=== PATIENT | female | born 1945 | race Caucasian/White ===

== ENCOUNTER 2017-08-24 13:56 | Inpatient (IN) | payer MEDICARE ==
[2017-08-24] MEDS ORDERED: SODIUM CHLORIDE 0.9% 500 ML IV STA (15:00)
--- NOTE | 2017-08-24 15:03 | ED ---
General Adult HPI - General Chief complaint: Recheck/Abnormal Lab/Rx Stated complaint: Weakness Time Seen by Provider: 08/24/17 14:20 Source: patient, RN notes reviewed Mode of arrival: wheelchair Limitations: no limitations - History of Present Illness Initial comments: This is a 72-year-old female presents emergency Department complaining that she is feeling extremely weak when she stands up she is becoming very dizzy. Patient states she was told quite a while ago that she was anemic and she was post to follow-up for iron infusions colonoscopies but she has not done that because she is fearful. Patient states she is at the point now that food makes her nauseated she can barely stand and she hasn't got out of the house and weeks. Patient decided that it is time did take some action so she came to the emergency department. Patient denies any chest pain patient denies any recent fever chills or cough. Patient denies headache patient denies numbness weakness. Patient denies nausea vomiting diarrhea. - Related Data Home Medications Medication Instructions Recorded Confirmed Allopurinol [Zyloprim] 100 mg PO BID 01/29/17 08/24/17 Aspirin 325 mg PO DAILY 01/29/17 08/24/17 Clopidogrel [Plavix] 75 mg PO DAILY 01/29/17 08/24/17 Lisinopril-Hctz 20-12.5 mg 1 tab PO BID 01/29/17 08/24/17 [Zestoretic 20-12.5] Metoprolol Tartrate 25 mg PO BID 01/29/17 08/24/17 Simvastatin 40 mg PO DAILY 01/29/17 08/24/17 glyBURIDE [Diabeta] 5 mg PO AC-BID 01/29/17 08/24/17 Promethazine HCl 12.5 mg PO DAILY PRN 08/24/17 08/24/17 Ranolazine [Ranexa] 1,000 mg PO BID 08/24/17 08/24/17 Allergies Allergy/AdvReac Type Severity Reaction Status Date / Time No Known Allergies Allergy Verified 08/24/17 14:45 Review of Systems ROS Statement: Those systems with pertinent positive or pertinent negative responses have been documented in the HPI. ROS Other: All systems not noted in ROS Statement are negative. Past Medical History Past Medical History: Coronary Artery Disease (CAD), Diabetes Mellitus, Hyperlipidemia, Hypertension, Renal Disease Additional Past Medical History / Comment(s): Vertigo,anemia,angina History of Any Multi-Drug Resistant Organisms: None Reported Past Surgical History: Appendectomy, Cholecystectomy, Heart Catheterization With Stent Past Anesthesia/Blood Transfusion Reactions: Motion Sickness Date of Last Stent Placement:: 2006 Past Psychological History: No Psychological Hx Reported Smoking Status: Never smoker Past Alcohol Use History: None Reported Past Drug Use History: None Reported General Exam - General Exam Comments Initial Comments: GENERAL: Patient is well-developed and well-nourished. Patient is nontoxic and well- hydrated and is in no acute distress. ENT: Neck is soft and supple. No significant lymphadenopathy is noted. Oropharynx is clear. Moist mucous membranes. Neck has full range of motion without eliciting any pain. EYES: The sclera were anicteric and conjunctiva were pink and moist. Extraocular movements were intact and pupils were equal round and reactive to light. Eyelids were unremarkable. PULMONARY: Unlabored respirations. Good breath sounds bilaterally. No audible rales rhonchi or wheezing was noted. CARDIOVASCULAR: There is a regular rate and rhythm without any murmurs gallops or rubs. ABDOMEN: Soft and nontender with normal bowel sounds. No palpable organomegaly was noted. There is no palpable pulsatile mass. SKIN: Skin is very pale. NEUROLOGIC: Patient is alert and oriented x3. Cranial nerves II through XII are grossly intact. Motor and sensory are also intact. Normal speech, volume and content. Symmetrical smile. MUSCULOSKELETAL: Normal extremities with adequate strength and full range of motion. LYMPHATICS: No significant lymphadenopathy is noted PSYCHIATRIC: Normal psychiatric evaluation. Normal interpersonal interactions appears functionally intact in deals appropriately with others. No signs of depression. No signs of anxiety. Limitations: no limitations Course Vital Signs 08/24/17 08/24/17 08/24/17 14:21 15:41 16:36 Temperature 97.6 F Pulse Rate 99 53 L 55 L Respiratory 20 16 16 Rate Blood Pressure 107/55 135/65 157/72 O2 Sat by Pulse 97 100 99 Oximetry Medical Decision Making - Medical Decision Making EKG shows sinus bradycardia 51 bpm OR interval is 188 QRS is 94 QT interval is 516 QTC is 475. Patient's EKG shows no ST segment elevation or depression or T wave abnormalities are noted. - Lab Data Result diagrams: 08/24/17 15:07 Lab Results 08/24/17 08/24/1718 Range/Units 15:07 15:07 15:07 WBC 6.9 (3.8-10.6) k/uL RBC 3.48 L (3.80-5.40) m/uL Hgb 7.7 L (11.4-16.0) gm/dL Hct 26.0 L (34.0-46.0) % MCV 74.8 L (80.0-100.0) fL MCH 22.0 L (25.0-35.0) pg MCHC 29.4 L (31.0-37.0) g/dL RDW 17.6 H (11.5-15.5) % Plt Count 210 (150-450) k/uL Neutrophils % 90 % Lymphocytes % 5 % Monocytes % 3 % Eosinophils % 1 % Basophils % 1 % Neutrophils # 6.2 (1.3-7.7) k/uL Lymphocytes # 0.3 L (1.0-4.8) k/uL Monocytes # 0.2 (0-1.0) k/uL Eosinophils # 0.1 (0-0.7) k/uL Basophils # 0.0 (0-0.2) k/uL Hypochromasia Marked Poikilocytosis Slight Anisocytosis Slight Microcytosis Moderate PT 10.7 (9.0-12.0) sec INR 1.1 (<1.2) APTT 20.2 L (22.0-30.0) sec Total Creatine Kinase 82 (30-135) U/L CK-MB (CK-2) 0.8 (0.0-2.4) ng/mL CK-MB (CK-2) Rel Index 1.0 Troponin I <0.012 (0.000-0.034) ng/mL Disposition Clinical Impression: Generalized weakness, Anemia Disposition: ADMITTED IP TO THIS HOSP Referrals: Dimas Batista DO [Primary Care Provider] - 1-2 days Time of Disposition: 16:56
[2017-08-24 15:20] LABS: Anisocytosis Slight; Basophils % (A) 1 %; Eosinophils # (A) 0.1 k/uL (0-0.7); Eosinophils % (A) 1 %; HGB 7.7 gm/dL (11.4-16.0); Hypochromasia Marked; Lymphocytes # (A) 0.3 k/uL (1.0-4.8); Lymphocytes % (A) 5 %; MCHC 29.4 g/dL (31.0-37.0); MCV 74.8 fL (80.0-100.0); Mean Platelet Volume 6.4; Microcytosis Moderate; Monocytes # (A) 0.2 k/uL (0-1.0); Monocytes % (A) 3 %; Neutrophils # (A) 6.2 k/uL (1.3-7.7); Neutrophils % (A) 90 %; Platelet Count 210 k/uL (150-450); Poikilocytosis Slight; RBC 3.48 m/uL (3.80-5.40); RDW 17.6 % (11.5-15.5); WBC 6.9 k/uL (3.8-10.6)
[2017-08-24 15:41] LABS: Creatine Kinase 82 U/L (30-135)
[2017-08-24 15:45] LABS: INR 1.1 (<1.2); Prothrombin Time 10.7 sec (9.0-12.0)
[2017-08-24 15:52] LABS: Partial Thromboplastin Time 20.2 sec (22.0-30.0)
[2017-08-24 15:54] LABS: Creatine Kinase MB 0.8 ng/mL (0.0-2.4); Troponin I <0.012 ng/mL (0.000-0.034)
[2017-08-24] MEDS ORDERED: SODIUM CHLORIDE 0.9% 1,000 ML IV ONE (16:56)
[2017-08-24 17:04] LABS: Albumin 4.1 g/dL (3.5-5.0); Calcium 9.7 mg/dL (8.4-10.2); Total Bilirubin 0.5 mg/dL (0.2-1.3); Total Protein 7.2 g/dL (6.3-8.2)
[2017-08-24] MEDS ORDERED: ONDANSETRON 4 MG/2 ML VIAL IVP PRN (19:40)
[2017-08-24] MEDS ORDERED: NALOXONE 0.4 MG/ML 1 ML VIAL IV PRN (19:40)
[2017-08-24] MEDS ORDERED: ACETAMINOPHEN TAB 325 MG TAB PO PRN (19:40)
[2017-08-24] MEDS ORDERED: LORazepam 0.5 MG TAB PO PRN (19:40)
[2017-08-24] MEDS ORDERED: MELATONIN 3 MG TABLET PO PRN (19:40)
[2017-08-24] MEDS ORDERED: CALCIUM CARBONATE 500 MG CHEWABLE PO PRN (19:40)
[2017-08-24] MEDS ORDERED: METOPROLOL TARTRATE 25 MG TAB PO SCH (21:00)
[2017-08-24] MEDS: METOPROLOL TARTRATE 12.5 MG TAB PO SCH (21:02)
[2017-08-24] MEDS: RANOLAZINE 500 MG TAB.ER.12H PO SCH (21:02)
--- NOTE | 2017-08-25 00:14 | HP ---
HISTORY AND PHYSICAL DATE OF ADMISSION: 08/24/2017 PRESENT COMPLAINT: Weak, tired. HISTORY OF PRESENTING COMPLAINT: This is a very pleasant 72-year-old patient of Dr. Dimas Batista. Chronic stable medical conditions include coronary artery disease with a history of stent about 5 years ago, hypertension, hyperlipidemia, chronic kidney disease. The patient has been reluctant to follow up with doctors and is brought in by her son and daughter. The patient over the last few months progressively getting more and more weak and tired, weak to the point that the patient has to now use a wheelchair, gets dizzy very easily when she stands up. The patient has known chronic kidney disease and her creatinine was 1.7 last recorded at a family doctor's office. Appetite has gone down. Weight has remained stable. Some swelling of the lower extremity. Mild shortness of breath. No chest pain. The patient is also found to be significantly anemic in the ER, hemoglobin of 7.7 and because of symptoms, 1 unit of blood was ordered in the ER. REVIEW OF SYSTEMS: CONSTITUTIONAL: Decreased appetite, weak and tired. HEENT: None. RESPIRATORY: Minimal short of breath. CARDIOVASCULAR: No chest pain. GASTROINTESTINAL: None. GENITOURINARY: None. MUSCULOSKELETAL: None. DERMATOLOGICAL: None. HEMATOLOGIC: None. LYMPHATIC: None. PSYCHIATRY: None. NEUROLOGICAL: None. MUSCULOSKELETAL: Weakness in all the muscles. PAST MEDICAL HISTORY: Coronary artery disease with stent 5 years ago, diabetes mellitus type 2, hyperlipidemia, hypertension, chronic kidney disease. PAST SURGICAL HISTORY: Appendectomy, cholecystectomy, cardiac cath with stent in 2006. SOCIAL HISTORY: Lives with her . Does not smoke or drink alcohol. FAMILY HISTORY: Myocardial infarction. HOME MEDICATIONS: 1. Promethazine 12.5 p.o. t.i.d. p.r.n. 2. DiaBeta 5 mg p.o. b.i.d. 3. Simvastatin 40 mg p.o. daily. 4. Ranexa 1000 mg p.o. b.i.d. 5. Metoprolol 25 mg p.o. b.i.d. 6. Zestoretic 20/12.5 one tablet p.o. b.i.d. 7. Plavix 75 mg p.o. daily. 8. Aspirin 325 p.o. daily. 9. Allopurinol 100 mg p.o. b.i.d. ALLERGIES: None. EXAMINATION: VITAL SIGNS: On presentation, temperature 97.6, pulse 55, respirations 16, blood pressure 135/65, pulse ox 100% on room air. GENERAL APPEARANCE: Well-built, BMI 30.59. Lying in bed, tired-appearing. EYES: Pupils equal, conjunctivae pale. HEENT: External nose and ears normal. Oral cavity normal with decreased scalp hair. NECK: JVD not raised. Mass not palpable. RESPIRATORY: Effort normal. Lungs are clear. CARDIOVASCULAR: First and second sounds normal. Mild edema. ABDOMEN: Soft, nontender. Liver and spleen not palpable. LYMPHATIC: No lymph nodes palpable in neck or axillae. PSYCHIATRY: Alert and oriented x3. Mood and affect normal. NEUROLOGIC: Pupils equal. Cranial nerve grossly intact. Power and sensation grossly intact. MUSCULOSKELETAL: Just generalized weakness of the muscles. INVESTIGATION: White count 6.9, hemoglobin 7.7, MCV low at 74.8, platelets 210. Potassium 5, bicarb 21, BUN 49, creatinine 2.40. ASSESSMENT: 1. Severe myopathy, probably multifactorial, given that the patient has renal failure. Will need to check the patient's phosphate level. Also, it may be noted that the patient is on simvastatin. That could be contributing to the same. Will check patient's CPK. 2. Possibly acute renal failure on chronic kidney disease. The patient's last creatinine was 1.7 as per the patient's family doctor and patient was on angiotensin-converting enzyme inhibitor and diuretics. That could be making things worse. 3. Metabolic acidosis, likely from renal failure. 4. Symptomatic microcytic anemia. Need to rule out a gastrointestinal cause, symptomatic. 5. Obesity; BMI 30.9. 6. Coronary artery disease with history of stent 5 years ago. 7. Essential hypertension. 8. Hyperlipidemia. 9. Rule out orthostatic, as patient gets dizzy on standing up. PLAN: Will check patient's orthostatics. Will check the patient's a UA and a renal ultrasound. Will check the patient's iron studies, including iron, TIBC and ferritin. Will also check a phosphorus level. Will also assess for the patient's 2D echocardiogram and send off a CPK to check if there is underlying rhabdomyolysis. Will also check the patient's chest x-ray, get physical therapy involved. Consultation also made to GI with a view to possible colonoscopy. The patient also having some bradycardia. Will cut back on the dose of Lopressor. If need be, other antihypertensive will be added. The patient also put on IV fluids. Given the renal failure, also will cut back on the dose of allopurinol and check a uric acid in the morning. Care was discussed at length with the patient and family and take it from here. MANUELA / RON: [id number] /
[2017-08-25] MEDS: SODIUM CHLORIDE 0.9% 1,000 ML IV SCH ×3 (06:21→16:16)
[2017-08-25 07:15] LABS: Appearance,Urine Clear (Clear); Bilirubin,Urine Negative (Negative); Blood,Urine Negative (Negative); Color,Urine Yellow; Glucose,Urine (UA) Negative (Negative); Hyaline Casts,Urine 5 /lpf (0-2); Ketones,Urine Negative (Negative); Leukocyte Esterase,Urine Large (Negative); Nitrite,Urine Negative (Negative); Protein,Urine Negative (Negative); RBC,Urine 3 /hpf (0-5); Specific Gravity,Urine 1.013 (1.001-1.035); Squamous Epithelial Cell,Urine 2 /hpf (0-4); Urobilinogen,Urine <2.0 mg/dL (<2.0); WBC,Urine 29 /hpf (0-5)
[2017-08-25 07:17] LABS: Glucose,Whole Blood 173 mg/dL (75-99)
[2017-08-25] MEDS: INSULIN ASPART 100 UNIT/ML 1 ML 10 ML VIAL SQ SCH ×3 (07:24→18:10)
[2017-08-25] MEDS: METOPROLOL TARTRATE 12.5 MG TAB PO SCH ×2 (07:25→21:58)
[2017-08-25] MEDS: RANOLAZINE 500 MG TAB.ER.12H PO SCH ×2 (07:30→21:57)
[2017-08-25 08:19] LABS: Anisocytosis Slight; Basophils % (A) 0 %; Eosinophils # (A) 0.2 k/uL (0-0.7); Eosinophils % (A) 4 %; HCT 23.4 % (34.0-46.0); Hypochromasia Marked; Lymphocytes # (A) 0.4 k/uL (1.0-4.8); Lymphocytes % (A) 9 %; MCHC 29.1 g/dL (31.0-37.0); MCV 75.5 fL (80.0-100.0); Microcytosis Moderate; Monocytes # (A) 0.4 k/uL (0-1.0); Monocytes % (A) 8 %; Neutrophils # (A) 3.6 k/uL (1.3-7.7); Neutrophils % (A) 76 %; Platelet Count 159 k/uL (150-450); Poikilocytosis Moderate; RDW 18.4 % (11.5-15.5); WBC 4.7 k/uL (3.8-10.6)
[2017-08-25 08:20] LABS: Phosphorus 4.5 mg/dL (2.5-4.5)
[2017-08-25 08:26] LABS: HGB 6.8 gm/dL (11.4-16.0)
--- NOTE | 2017-08-25 08:34 | US ---
EXAMINATION TYPE: US abd limited kidneys/bladder DATE OF EXAM: 08/25/2017 COMPARISON: NONE CLINICAL HISTORY: renal failure. Renal failure, anemia EXAM MEASUREMENTS: Liver Length: 13.5 cm CBD: 0.6 cm Right Kidney: 9.5 x 4.0 x 3.8 cm Left Kidney: 9.2 x 4.1 x 4.0 cm Difficult exam due to overlying bowel gas throughout ABD Pancreas: Obscured by bowel gas Liver: Limited visualization/ Visualized portions appeared wnl Gallbladder: Surgically absent CBD: wnl Right Kidney: Cortical thinning, no evidence of hydro Left Kidney: Cortical thinning, no evidence of hydro Bladder: wnl Bilateral Jets Seen Only right jet visualize The pancreas is poorly visualized. The liver is normal in size without evidence of biliary dilatation. There is been a previous cholecystectomy. This common hepatic duct measures 6 mm. There is mild cortical thinning involving both kidneys with no evidence of nephrolithiasis or doses. The bladder is unremarkable. The right ureteral jet was visualized. The left was not. IMPRESSION: 1. MILD, BILATERAL RENAL CORTICAL THINNING, MAY REFLECT MILD ATROPHY. 2. FAILURE TO VISUALIZE A LEFT URETERAL JET.
--- NOTE | 2017-08-25 08:35 | XR ---
EXAMINATION TYPE: XR chest 2V DATE OF EXAM: 08/25/2017 HISTORY: cad. REFERENCE: NONE. FINDINGS: The lungs are clear. Pleural space are clear. The heart is not enlarged. IMPRESSION: NO ACTIVE INTRATHORACIC DISEASE.
[2017-08-25 09:54] LABS: Calcium 8.9 mg/dL (8.4-10.2); Potassium 4.3 mmol/L (3.5-5.1)
[2017-08-25] MEDS: ALLOPURINOL 100 MG TAB PO SCH (11:20)
[2017-08-25] MEDS: CLOPIDOGREL 75 MG TAB PO SCH (11:20)
[2017-08-25 11:49] LABS: Glucose,Whole Blood 166 mg/dL (75-99)
--- NOTE | 2017-08-25 12:12 | CONS ---
CONSULTATION DATE OF SERVICE: August 25, 2017. REQUESTING PHYSICIAN: Dr. Jeannette Batista. REASON FOR CONSULTATION: Severe symptomatic anemia. HISTORY OF PRESENT ILLNESS: The patient is a 72-year-old pleasant white female admitted to the hospital with fatigue, weakness, not feeling well and hemoglobin of 6.4 g/dL. The patient apparently for the last 2 weeks has been progressively getting weak, weak and dizzy and could not stand up at home. She denies any abdominal symptoms. No nausea, vomiting. No rectal bleeding or melena. No abdominal pain. She came to the ER yesterday. Initial hemoglobin was 7.4, subsequently dropped to 6.4, currently receiving 2nd unit of blood transfusion. She did have blood transfusion about 8 years ago. No history of peptic ulcer disease or recent NSAID use. No prior history of EGD or colonoscopy. PAST MEDICAL HISTORY: Significant for hypertension, hyperlipidemia, coronary artery disease status post stent placement 8 years ago, diabetes mellitus, chronic kidney disease. MEDICATIONS: At home promethazine, DiaBeta, simvastatin. Ranexa, metoprolol, Zestoretic, Plavix, aspirin, Allopurinol, Plavix, she took 3 days ago. SOCIAL HISTORY: No smoking. No alcohol use. PAST SURGICAL HISTORY: Appendectomy, cholecystectomy, cardiac cath with stent in 2003. ALLERGIES: Allergies none. FAMILY HISTORY: Unremarkable. REVIEW OF SYSTEMS: Cardiopulmonary no chest pain, shortness of breath. Genitourinary: No dysuria or hematuria. Musculoskeletal unremarkable. Skin unremarkable. Endocrine unremarkable. Psychiatric unremarkable. Neurology unremarkable. ENT vision unremarkable. Constitutional no recent weight loss. No fever, chills or night sweats. PHYSICAL EXAMINATION: She appears comfortable. No apparent distress. Vital signs stable. Blood pressure is 111/55. Pulse rate 56, temperature 98.4. HEENT examination unremarkable. Conjunctivae pink. Sclerae anicteric. Oral cavity no lesions. Neck: No jugular venous distention or lymph node enlargement. Chest was clear to auscultation. HEART: Regular rate and rhythm. ABDOMEN: Soft, it was nontender, nondistended. Liver and spleen not palpable. Bowel sounds are positive. No organomegaly. Extremities no pedal edema. Skin no rashes. NEUROLOGIC: Alert and oriented x3. No focal deficits. LAB: WBC 4.7, hemoglobin 6.8, platelets 159, MCV 75. INR 1.1. BUN 43, creatinine 2.08. Iron studies are still pending. IMPRESSION: 1. Severe symptomatic anemia with microcytosis and hypochromic anemia all suggestive of iron deficiency anemia. Clinically no evidence of active bleeding most likely we are dealing with occult gastrointestinal blood loss. Never had EGD or colonoscopy in the past. The patient has no gastrointestinal symptoms currently. 2. Chronic kidney disease. 3. Longstanding history of diabetes mellitus and hypertension. RECOMMENDATIONS: I had a lengthy discussion with the patient regarding workup for microcytic hypochromic anemia. At this time, I would recommend an EGD and colonoscopy. I discussed with her risks, benefits, and complications of the procedure and she elects to proceed with endoscopic interventions tomorrow. In the meantime, she will be started on a clear liquid diet and we will follow her closely during hospital stay. Thank you for this consultation. MANUELA / RON: [id number] /
--- NOTE | 2017-08-25 12:25 | P.NPCON ---
History of Present Illness - Reason for Consult acute renal failure - History of Present Illness Reason for consultation: Acute kidney injury History of present illness: Patient is a 72-year-old female seen in renal consultation for acute kidney injury. It is noted in the chart that she does have chronic kidney disease with prior creatinine 1.7 at her primary care physician's office. Her urinalysis is quite benign. She does have history of diabetes mellitus. Patient presented to the hospital with generalized weakness and dizziness. She has history of anemia but did not follow-up with physicians as an outpatient as she was scared. Her ultrasound reveals relatively normal sized kidneys with cortical thinning. She did have an episode of vomiting and dry heaving yesterday. Hemoglobin was noted to be low as 6.8 this morning for which she is receiving blood transfusion. Her creatinine was 2.4 on admission and is down to 2.0 today. She denies any family history of renal disease. She denies use of NSAIDs. Denies chest pain or shortness of breath. She was also noted to be orthostatic with standing blood pressure of 88/50. Furthermore she was also taking lisinopril and hydrochlorothiazide as an outpatient which is currently held. Vital signs are stable. General: The patient appeared well nourished and normally developed. HEENT: Head exam is unremarkable. Neck is without jugular venous distension. LUNGS: Lungs are clear to auscultation and percussion. Breath sounds decreased. HEART: Rate and Rhythm are regular. First and second heart sounds normal. No murmurs, rubs or gallops. ABDOMEN: Abdominal exam reveals normal bowel sounds. Non-tender and non- distended. No evidence of peritonitis. EXTREMITITES: No clubbing, cyanosis, or edema. Past Medical History Past Medical History: Coronary Artery Disease (CAD), Diabetes Mellitus, Hyperlipidemia, Hypertension, Renal Disease Additional Past Medical History / Comment(s): Vertigo,nausea anemia,angina History of Any Multi-Drug Resistant Organisms: None Reported Past Surgical History: Appendectomy, Cholecystectomy, Heart Catheterization With Stent Past Anesthesia/Blood Transfusion Reactions: Motion Sickness Additional Past Anesthesia/Blood Transfusion Reaction / Comment(s): blood transfusion-no reaction Date of Last Stent Placement:: 2006 Past Psychological History: No Psychological Hx Reported Additional Psychological History / Comment(s): pt denies any depression but family concered she is. pt has shown signs in past but never put on any meds. they stated pt has'nt been out of her house since 05-21-17. cancels appts. just can't seem to get up and go. Smoking Status: Never smoker Past Alcohol Use History: None Reported Past Drug Use History: None Reported - Past Family History Father Family Medical History: Myocardial Infarction ([place]) Additional Family Medical History / Comment(s): age 60 from [place] Mother Family Medical History: CVA/TIA Additional Family Medical History / Comment(s): lived to be Medications and Allergies Home Medications Medication Instructions Recorded Confirmed Type Allopurinol [Zyloprim] 100 mg PO BID 01/29/17 08/24/17 History Aspirin 325 mg PO DAILY 01/29/17 08/24/17 History Clopidogrel [Plavix] 75 mg PO DAILY 01/29/17 08/24/17 History Lisinopril-Hctz 20-12.5 mg 1 tab PO BID 01/29/17 08/24/17 History [Zestoretic 20-12.5] Metoprolol Tartrate 25 mg PO BID 01/29/17 08/24/17 History Simvastatin 40 mg PO DAILY 01/29/17 08/24/17 History glyBURIDE [Diabeta] 5 mg PO AC-BID 01/29/17 08/24/17 History Promethazine HCl 12.5 mg PO DAILY PRN 08/24/17 08/24/17 History Ranolazine [Ranexa] 1,000 mg PO BID 08/24/17 08/24/17 History Allergies Allergy/AdvReac Type Severity Reaction Status Date / Time No Known Allergies Allergy Verified 08/24/17 14:45 Physical Exam Vitals: Vital Signs Temp Pulse Pulse Pulse Pulse Pulse Resp 08/25/17 10:32 98.3 F 56 L 20 08/25/17 10:02 98.4 F 53 L 08/25/17 09:52 98.4 F 62 18 08/25/17 09:49 98.4 F 56 L 18 08/25/17 01:47 98.2 F 70 16 08/24/17 23:25 98 F 66 16 08/24/17 23:00 98 F 72 86 68 08/24/17 22:55 98 F 68 08/24/17 22:45 98 F 67 08/24/17 21:30 96.3 F L 68 16 08/24/17 17:41 57 L 16 08/24/17 16:36 55 L 16 08/24/17 15:41 53 L 16 08/24/17 14:21 97.6 F 99 20 BP BP BP BP BP Pulse Ox 08/25/17 10:32 122/59 96 08/25/17 10:02 104/60 08/25/17 09:52 113/56 08/25/17 09:49 111/55 96 08/25/17 01:47 135/65 98 08/24/17 23:25 125/60 98 08/24/17 23:00 117/69 88/50 185/84 99 08/24/17 22:55 116/58 98 08/24/17 22:45 129/60 97 08/24/17 21:30 185/84 99 08/24/17 17:41 160/103 100 08/24/17 16:36 157/72 99 08/24/17 15:41 135/65 100 08/24/17 14:21 107/55 97 Intake and Output 08/24/17 08/25/17 08/25/17 22:59 06:59 14:59 Intake Total 975 875 0 Balance 975 875 0 Intake: Intake, IV Titration 375 675 Amount Sodium Chloride 0.9% 1, 375 675 000 ml @ 125 mls/hr IV . Q8H [facility] Rx#:[id number] Oral 600 200 Blood Product 0 0 0 Rc As-1 Unit 0 [id number] Rc As-1 Unit 0 0 [id number] Other: Voiding Method Toilet Toilet Diaper # Voids 1 1 # Bowel Movements 0 Weight 81.68 kg 81.68 kg Results - Lab Results Most recent lab results Calcium 8.9 mg/dL (8.4-10.2) 08/25/17 07:15 Phosphorus 4.5 mg/dL (2.5-4.5) 08/25/17 07:15 Magnesium 2.0 mg/dL (1.6-2.3) 08/24/17 16:26 08/25/17 07:15 08/25/17 07:15 Assessment and Plan Plan: Assessment: #1. Nonoliguric acute kidney injury mostly prerenal secondary to acute anemia. Creatinine was 2.4 and admission and is down to 2.0 today. Urinalysis is quite benign. No evidence of hydronephrosis noted on renal ultrasound. #2. Acute blood loss anemia with concern for GI bleed. Scheduled for colonoscopy today. #3. Metabolic acidosis secondary to acute kidney injury and IV fluids. #4. Chronic kidney disease stage III secondary to nephrosclerosis with baseline creatinine near 1.7. #5. Orthostatic hypotension likely related to anemia. #6. Diabetes mellitus. Plan: Patient currently receiving blood transfusion. I will decrease her maintenance fluids to 50 mL an hour. Add oral sodium bicarbonate 650 mg twice daily. Check iron studies. Follow-up echocardiogram results. Avoid nephrotoxic agents and hypotensive episodes. Repeat electrolytes in the morning. Thank you for the consultation. I will continue to follow the patient with you during her hospital stay.
[2017-08-25] MEDS: INSULIN DETEMIR 100 UNIT/ML 10 ML VIAL SQ SCH (13:05)
[2017-08-25 13:37] LABS: Iron Saturation 43.09 (12.00-45.00)
[2017-08-25 13:40] VITALS: BMI 30.9
--- NOTE | 2017-08-25 13:43 | ECHOF ---
Referral Reason:cad MEASUREMENTS -------- HEIGHT: 162.6 cm WEIGHT: 81.6 kg BP: 120/60 IVSd: 1.2 cm (0.6 - 1.1) LVIDd: 4.5 cm (3.9 - 5.3) LVPWd: 1.4 cm (0.6 - 1.1) IVSs: 1.8 cm LVIDs: 2.8 cm LVPWs: 1.1 cm LA Diam: 2.9 cm (2.7 - 3.8) Ao Diam: 2.8 cm (2.0 - 3.7) AV Cusp: 2.5 cm (1.5 - 2.6) LA Diam: 3.3 cm (2.7 - 3.8) MV EXCURSION: 18.959 mm (> 18.000) MV EF SLOPE: 110 mm/s (70 - 150) EPSS: 0.2 cm MV E Cristo: 0.54 m/s MV DecT: 295 ms MV A Cristo: 0.86 m/s MV E/A Ratio: 0.63 RAP: 5.00 mmHg RVSP: 15.95 mmHg FINDINGS -------- Sinus rhythm. This was a technically adequate study. The left ventricular size is normal. There is mild concentric left ventricular hypertrophy. Overa ll left ventricular systolic function is normal with, an EF between 55 - 60 %. The right ventricle is normal in size. The left atrial size is normal. The right atrial size is normal. There is mild aortic valve sclerosis. Trace to mild aortic regurgitation. Mild mitral annular calcification present. Mild mitral regurgitation is present. Mild tricuspid regurgitation present. There is no evidence of pulmonary hypertension. The right v entricular systolic pressure, as measured by Doppler, is 15.95mmHg. Trace/mild (physiologic) pulmonic regurgitation. The aortic root size is normal. There is no pericardial effusion. CONCLUSIONS -------- 1. The left ventricular size is normal. 2. There is mild concentric left ventricular hypertrophy. 3. Overall left ventricular systolic function is normal with, an EF between 55 - 60 %. 4. There is mild aortic valve sclerosis. 5. Trace to mild aortic regurgitation. 6. Mild mitral annular calcification present. 7. Mild mitral regurgitation is present. 8. Mild tricuspid regurgitation present. 9. There is no evidence of pulmonary hypertension. 10. The right ventricular systolic pressure, as measured by Doppler, is 15.95mmHg. 11. Trace/mild (physiologic) pulmonic regurgitation. 12. The aortic root size is normal. 13. There is no pericardial effusion. SOLE DYER: Isabel Baker RDCS
[2017-08-25] MEDS: SODIUM BICARBONATE TAB 650 MG TAB PO SCH ×2 (13:56→21:57)
[2017-08-25] MEDS ORDERED: PEG 3350-NA SULF,BICARB,CL/KCL 4,000 ML BOTTLE PO ONE (16:00)
[2017-08-25 17:04] LABS: Glucose,Whole Blood 147 mg/dL (75-99)
--- NOTE | 2017-08-25 17:33 | PN ---
PROGRESS NOTE DATE OF SERVICE: 08/25/2017 PRESENTING COMPLAINT: Weak, tired, dizzy. INTERVAL HISTORY: This is a very pleasant lady admitted with multiple problems including acute renal failure on chronic kidney disease, metabolic acidosis, symptomatic anemia. Patient did get a unit of blood last night. This morning, hemoglobin was still down to 6.9. I did order a unit of blood. Patient did tolerate her breakfast. Family members at the bedside including son and . REVIEW OF SYSTEMS: Done for constitutional, cardiovascular, GI, pulmonary; relevant findings as above. CURRENT MEDICATIONS: Reviewed include IV fluids, sodium bicarb, Lopressor, Levemir. PHYSICAL EXAMINATION: Temperature 98.2, pulse 61, respiration 20, blood pressure 127/69, pulse ox 99% on room air. GENERAL APPEARANCE: Lying in bed, awake. EYES: Pupils equal, conjunctivae pale. HEENT: External appearance of nose and ears normal, oral cavity normal, decreased scalp hair. NECK: JVD not raised. Mass not palpable. Respiratory effort normal. Lungs are clear. CARDIOVASCULAR: First and second sounds normal, mild edema. ABDOMEN: Soft, nontender. Liver and spleen not palpable. PSYCHIATRY: Alert and oriented x3. Mood and affect normal. INVESTIGATIONS: White count 4.7, hemoglobin 6.8, platelets 154. Potassium 4.3, BUN 43, creatinine 2.08, ferritin 9.9, iron 156. TSH normal. A 2D echo showed preserved LV function. Renal ultrasound showing some thinning of the cortex. ASSESSMENT: 1. Symptomatic microcytic anemia. Patient's hemoglobin is still low this morning, requiring a unit of blood. 2. Obesity; body mass index 30.9. 3. Coronary artery disease with history of coronary stent 5 years ago. 4. Essential hypertension. 5. Hyperlipidemia. 6. Orthostatic hypotension from severe anemia. 7. Chronic kidney disease, probably diabetic nephropathy with the baseline creatinine 1.7. 8. Acute renal failure from patient being on ITALIA inhibitors, diuretics with some improvement. 9. Severe myopathy, multifactorial, improving. 10.Metabolic acidosis from renal failure. PLAN: Discussed with Dr. Imelda Aranda. Patient will be having a colonoscopy tomorrow. Continue with IV fluids, bicarbonate. Patient is going to get another unit of blood. Care was discussed the patient. Family at the bedside. Questions were answered. MMODL / IJN: [id number] /
[2017-08-25 20:46] LABS: Glucose,Whole Blood 186 mg/dL (75-99)
[2017-08-26] MEDS: ALLOPURINOL 100 MG TAB PO SCH (07:04)
[2017-08-26] MEDS: SODIUM BICARBONATE TAB 650 MG TAB PO SCH ×2 (07:05→21:04)
[2017-08-26] MEDS: CLOPIDOGREL 75 MG TAB PO SCH (07:05)
[2017-08-26 07:31] LABS: Glucose,Whole Blood 108 mg/dL (75-99)
[2017-08-26 07:59] LABS: Calcium 9.2 mg/dL (8.4-10.2); Potassium 4.3 mmol/L (3.5-5.1)
[2017-08-26] MEDS: INSULIN ASPART 100 UNIT/ML 1 ML 10 ML VIAL SQ SCH ×3 (08:05→17:43)
[2017-08-26] MEDS: METOPROLOL TARTRATE 12.5 MG TAB PO SCH ×2 (08:08→21:03)
[2017-08-26] MEDS: INSULIN DETEMIR 100 UNIT/ML 10 ML VIAL SQ SCH (08:14)
[2017-08-26] MEDS: RANOLAZINE 500 MG TAB.ER.12H PO SCH ×2 (08:15→21:03)
[2017-08-26 10:20] LABS: Anisocytosis Slight; Basophils % (A) 0 %; Eosinophils # (A) 0.2 k/uL (0-0.7); Eosinophils % (A) 4 %; HCT 27.4 % (34.0-46.0); Hypochromasia Marked; Lymphocytes # (A) 0.5 k/uL (1.0-4.8); Lymphocytes % (A) 10 %; MCHC 30.5 g/dL (31.0-37.0); MCV 78.6 fL (80.0-100.0); Mean Platelet Volume 7.5; Microcytosis Slight; Monocytes # (A) 0.3 k/uL (0-1.0); Monocytes % (A) 5 %; Neutrophils % (A) 79 %; Platelet Count 131 k/uL (150-450); Poikilocytosis Moderate; RBC 3.49 m/uL (3.80-5.40); RDW 17.6 % (11.5-15.5)
[2017-08-26 10:27] LABS: HGB 8.4 gm/dL (11.4-16.0)
[2017-08-26 11:07] LABS: Glucose,Whole Blood 152 mg/dL (75-99)
--- NOTE | 2017-08-26 11:29 | P.PN ---
Subjective Patient is seen in follow-up for acute kidney injury. Creatinine was 2.4 on admission and is down to 1.6 today. Patient presented with generalized weakness and dizziness. She was noted to be orthostatic. She is currently maintained on normal saline. She was also anemic with a hemoglobin of 6.8 and received blood transfusion this admission. Hemoglobin is up to 8.4 today. Denies any melena or hematochezia. No signs of active bleeding. Oral intake is good. Vital signs are stable. General: The patient appeared well nourished and normally developed. HEENT: Head exam is unremarkable. Neck is without jugular venous distension. LUNGS: Lungs are clear to auscultation and percussion. Breath sounds decreased. HEART: Rate and Rhythm are regular. First and second heart sounds normal. No murmurs, rubs or gallops. ABDOMEN: Abdominal exam reveals normal bowel sounds. Non-tender and non- distended. No evidence of peritonitis. EXTREMITITES: No clubbing, cyanosis, or edema. Objective - Vital Signs Vital signs: Vital Signs Temp 97.3 F L 08/26/17 07:00 Pulse 62 08/26/17 08:09 Resp 18 08/26/17 07:00 BP 130/60 08/26/17 08:09 Pulse Ox 98 08/26/17 07:00 Intake & Output 08/25/17 08/26/17 08/26/17 18:59 06:59 18:59 Intake Total 1470 650 Balance 1470 650 Weight 81.68 kg Intake: Intake, IV Titration 400 650 Amount Sodium Chloride 0.9% 1, 400 650 000 ml @ 50 mls/hr IV . Q20H [facility] Rx#:[id number] Oral 450 Blood Product 620 Rc As-1 Unit 310 [id number] Other: Voiding Method Toilet Toilet Toilet # Voids 3 1 # Bowel Movements 0 - Labs CBC & Chem 7: 08/26/17 07:23 08/26/17 07:23 Labs: Abnormal Lab Results - Last 24 Hours (Table) 08/24/17 08/25/17 08/25/17 Range/Units 16:26 07:15 11:37 RBC (3.80-5.40) m/uL Hgb (11.4-16.0) gm/dL Hct (34.0-46.0) % MCV (80.0-100.0) fL MCH (25.0-35.0) pg MCHC (31.0-37.0) g/dL RDW (11.5-15.5) % Plt Count (150-450) k/uL Lymphocytes # (1.0-4.8) k/uL Carbon Dioxide (22-30) mmol/L BUN (7-17) mg/dL Creatinine (0.52-1.04) mg/dL Glucose (74-99) mg/dL POC Glucose (mg/dL) 166 H (75-99) mg/dL Ferritin 9.9 L (10.0-291.0) ng/mL Crossmatch See Detail 08/25/17 08/25/17 08/26/17 Range/Units 17:02 20:41 07:23 RBC (3.80-5.40) m/uL Hgb (11.4-16.0) gm/dL Hct (34.0-46.0) % MCV (80.0-100.0) fL MCH (25.0-35.0) pg MCHC (31.0-37.0) g/dL RDW (11.5-15.5) % Plt Count (150-450) k/uL Lymphocytes # (1.0-4.8) k/uL Carbon Dioxide 21 L (22-30) mmol/L BUN 32 H (7-17) mg/dL Creatinine 1.60 H (0.52-1.04) mg/dL Glucose 105 H (74-99) mg/dL POC Glucose (mg/dL) 147 H 186 H (75-99) mg/dL Ferritin (10.0-291.0) ng/mL Crossmatch 08/26/17 08/26/17 08/26/17 Range/Units 07:23 07:29 11:05 RBC 3.49 L (3.80-5.40) m/uL Hgb 8.4 L D (11.4-16.0) gm/dL Hct 27.4 L (34.0-46.0) % MCV 78.6 L (80.0-100.0) fL MCH 24.0 L (25.0-35.0) pg MCHC 30.5 L (31.0-37.0) g/dL RDW 17.6 H (11.5-15.5) % Plt Count 131 L (150-450) k/uL Lymphocytes # 0.5 L (1.0-4.8) k/uL Carbon Dioxide (22-30) mmol/L BUN (7-17) mg/dL Creatinine (0.52-1.04) mg/dL Glucose (74-99) mg/dL POC Glucose (mg/dL) 108 H 152 H (75-99) mg/dL Ferritin (10.0-291.0) ng/mL Crossmatch Assessment and Plan Plan: Assessment: #1. Nonoliguric acute kidney injury mostly prerenal secondary to acute anemia. Creatinine was 2.4 and admission and is down to 1.6 today. Urinalysis is quite benign. No evidence of hydronephrosis noted on renal ultrasound. #2. Acute blood loss anemia with concern for GI bleed. GI following. Potential endoscopy as an outpatient. #3. Metabolic acidosis secondary to acute kidney injury and IV fluids. Improved. #4. Chronic kidney disease stage III secondary to nephrosclerosis with baseline creatinine near 1.7. #5. Orthostatic hypotension likely related to anemia. Resolved. #6. Diabetes mellitus. Plan: Continue normal saline at 50 mL an hour. Maintain oral sodium bicarbonate 650 mg twice daily. Avoid nephrotoxic agents and hypotensive episodes. Repeat electrolytes in the morning. Anticipate discharge soon. She will need to follow-up as an outpatient in the next 2 weeks. Hold Zestoretic for now.
--- NOTE | 2017-08-26 13:01 | PN ---
PROGRESS NOTE DATE OF SERVICE: August 26, 2017 Patient is a 72-year-old pleasant white female admitted to hospital with severe symptomatic anemia and microcytosis suspicious for iron deficiency anemia. She was in fact scheduled for an EGD and colonoscopy today. However, she did not drink her prep yesterday and the procedure was canceled. The patient states that she has . She is status post 2 units of blood transfusion. Hemoglobin today is 9.2 g/dL. She denies any abdominal pain. No nausea, vomiting. No fever, chills, night sweats. PHYSICAL EXAMINATION: She appears comfortable. No apparent distress. VITAL SIGNS: Stable. Blood pressure is 133/82, pulse rate 52 and afebrile. HEENT examination unremarkable. Conjunctivae pink. Sclerae anicteric. Oral cavity no lesions. Neck no jugular venous distention or lymph node enlargement. The chest was clear to auscultation. HEART: Regular rate and rhythm. ABDOMEN: Soft. Bowel sounds are positive. No organomegaly. Extremities: No pedal edema. Skin: No rashes. Neurological: Alert and oriented times three. Central nervous system: No focal deficits. LABORATORY DATA: WBC 5, hemoglobin 8.4, platelets 131. IMPRESSION: 1. Severe microcytic hypochromic anemia, most likely related to iron deficiency gastrointestinal bleed. 2. Chronic renal insufficiency. RECOMMENDATIONS: I had a lengthy discussion with the patient regarding further workup of iron deficiency anemia. She wants to go home and she would like to have endoscopic workup on an outpatient basis . I suggested that she follow up in the office. Procedures will be scheduled very soon. In the meantime, I will advance the diet as tolerated. Thank you for this consultation. MMODL / IJN: [id number] /
[2017-08-26] MEDS: SODIUM CHLORIDE 0.9% 1,000 ML IV SCH (13:21)
[2017-08-26] MEDS ORDERED: PEG 3350-NA SULF,BICARB,CL/KCL 4,000 ML BOTTLE PO ONE (16:00)
[2017-08-26 17:16] LABS: Glucose,Whole Blood 153 mg/dL (75-99)
[2017-08-26 20:14] LABS: Glucose,Whole Blood 72 mg/dL (75-99)
[2017-08-26 21:47] LABS: Hemoglobin A1C 7.1 % (4.0-6.0)
--- NOTE | 2017-08-26 23:46 | PN ---
PROGRESS NOTE DATE OF SERVICE: 08/26/2017. PRESENTING COMPLAINT: Tired. INTERVAL HISTORY: This pleasant lady presented with multiple problems including acute renal failure on chronic kidney disease, metabolic acidosis, symptomatic anemia and was orthostatic. The patient got 2 units of blood. Dizziness is much better. Still getting episodes of nausea. States that she has had this for quite some time. The patient could not drink the prep yesterday, was feeling nauseated. REVIEW OF SYSTEMS: Done for constitutional, cardiovascular, GI, pulmonary; relevant findings as above. CURRENT MEDICATIONS: Reviewed that include allopurinol, Plavix, Glucotrol, Lopressor, Ranexa, sodium bicarb, normal saline. PHYSICAL EXAMINATION: Temperature 96.5, pulse 54, respiration 18, blood pressure 163/72, pulse ox 97% on room air. GENERAL APPEARANCE: Lying in bed, comfortable, awake. EYES: Pupils equal. Conjunctivae are normal. HEENT: External appearance of nose and ears normal. Oral cavity normal. NECK: JVD not raised. Mass not palpable. Respiratory effort normal. LUNGS: Clear. CARDIOVASCULAR: First and seconds sounds, minimal edema. ABDOMEN: Soft, nontender. Liver and spleen not palpable. PSYCHIATRY: Alert and oriented x3. Mood and affect normal. INVESTIGATIONS: White count 5, hemoglobin 8.4, platelets 131,000, potassium 4.3, BUN 32, creatinine 1.6, bicarb 21. Accu-Cheks are noted. ASSESSMENT: 1. Symptomatic microcytic anemia, status post 2 units of blood. 2. Obesity; BMI 38.9. 3. Coronary artery disease, prior history of coronary stent 5 years ago. 4. Essential hypertension. 5. Hyperlipidemia. 6. Orthostatic hypotension from severe anemia, now corrected. 7. Chronic kidney disease, probably diabetic nephropathy with baseline creatinine around 1.7. 8. Acute renal failure, probably combination of prerenal aspect and the patient being on ITALIA inhibitors. 9. Severe myopathy multifactorial, improving. 10.Metabolic acidosis from renal failure. 11.Element of nausea is still present. We will try the patient on Reglan. PLAN: I had a very lengthy talk with the patient and the family. We will try again to give the patient a bowel prep for colonoscopy so that the workup can be complete. Keep a close eye on the patient's platelets. The patient may be back on baby aspirin eventually. MMODL / IJN: [id number] /
[2017-08-27] MEDS: INSULIN ASPART 100 UNIT/ML 1 ML 10 ML VIAL SQ SCH ×3 (07:32→17:44)
[2017-08-27] MEDS: CLOPIDOGREL 75 MG TAB PO SCH (07:33)
[2017-08-27 07:42] LABS: Glucose,Whole Blood 104 mg/dL (75-99)
[2017-08-27] MEDS: METOPROLOL TARTRATE 12.5 MG TAB PO SCH ×2 (08:02→20:13)
[2017-08-27] MEDS: ALLOPURINOL 100 MG TAB PO SCH (08:03)
[2017-08-27] MEDS: SODIUM BICARBONATE TAB 650 MG TAB PO SCH ×2 (08:03→20:13)
[2017-08-27] MEDS: RANOLAZINE 500 MG TAB.ER.12H PO SCH ×2 (08:03→20:13)
[2017-08-27 08:24] LABS: Calcium 8.9 mg/dL (8.4-10.2); Potassium 4.1 mmol/L (3.5-5.1)
--- NOTE | 2017-08-27 10:07 | P.PN ---
Subjective Patient is seen in follow-up for acute kidney injury. Creatinine was 2.4 on admission and is down to 1.27 today. Patient presented with generalized weakness and dizziness. She was noted to be orthostatic. She is currently maintained on normal saline. She was also anemic with a hemoglobin of 6.8 and received blood transfusion this admission. Hemoglobin improved. Denies any melena or hematochezia. No signs of active bleeding. Oral intake is good. Vital signs are stable. General: The patient appeared well nourished and normally developed. HEENT: Head exam is unremarkable. Neck is without jugular venous distension. LUNGS: Lungs are clear to auscultation and percussion. Breath sounds decreased. HEART: Rate and Rhythm are regular. First and second heart sounds normal. No murmurs, rubs or gallops. ABDOMEN: Abdominal exam reveals normal bowel sounds. Non-tender and non- distended. No evidence of peritonitis. EXTREMITITES: No clubbing, cyanosis, or edema. Objective - Vital Signs Vital signs: Vital Signs Temp 98 F 08/27/17 07:00 Pulse 59 L 08/27/17 07:00 Resp 16 08/27/17 07:00 BP 162/72 08/27/17 07:00 Pulse Ox 94 L 08/27/17 07:00 Intake & Output 08/26/17 08/27/17 08/27/17 18:59 06:59 18:59 Intake Total 1140 Balance 1140 Weight 81.68 kg Intake: Intake, IV Titration 600 Amount Sodium Chloride 0.9% 1, 600 000 ml @ 50 mls/hr IV . Q20H [facility] Rx#:[id number] Oral 540 Other: Voiding Method Toilet Toilet Toilet # Voids 3 1 # Bowel Movements 1 - Labs CBC & Chem 7: 08/26/17 07:23 08/27/17 07:52 Labs: Abnormal Lab Results - Last 24 Hours (Table) 08/26/17 08/26/17 08/26/17 Range/Units 07:23 07:23 11:05 RBC 3.49 L (3.80-5.40) m/uL Hgb 8.4 L D (11.4-16.0) gm/dL Hct 27.4 L (34.0-46.0) % MCV 78.6 L (80.0-100.0) fL MCH 24.0 L (25.0-35.0) pg MCHC 30.5 L (31.0-37.0) g/dL RDW 17.6 H (11.5-15.5) % Plt Count 131 L (150-450) k/uL Lymphocytes # 0.5 L (1.0-4.8) k/uL Chloride (98-107) mmol/L BUN (7-17) mg/dL Creatinine (0.52-1.04) mg/dL Glucose (74-99) mg/dL POC Glucose (mg/dL) 152 H (75-99) mg/dL Hemoglobin A1c 7.1 H (4.0-6.0) % 08/26/17 08/26/17 08/27/17 Range/Units 17:09 20:10 07:26 RBC (3.80-5.40) m/uL Hgb (11.4-16.0) gm/dL Hct (34.0-46.0) % MCV (80.0-100.0) fL MCH (25.0-35.0) pg MCHC (31.0-37.0) g/dL RDW (11.5-15.5) % Plt Count (150-450) k/uL Lymphocytes # (1.0-4.8) k/uL Chloride (98-107) mmol/L BUN (7-17) mg/dL Creatinine (0.52-1.04) mg/dL Glucose (74-99) mg/dL POC Glucose (mg/dL) 153 H 72 L 104 H (75-99) mg/dL Hemoglobin A1c (4.0-6.0) % 08/27/17 Range/Units 07:52 RBC (3.80-5.40) m/uL Hgb (11.4-16.0) gm/dL Hct (34.0-46.0) % MCV (80.0-100.0) fL MCH (25.0-35.0) pg MCHC (31.0-37.0) g/dL RDW (11.5-15.5) % Plt Count (150-450) k/uL Lymphocytes # (1.0-4.8) k/uL Chloride 108 H (98-107) mmol/L BUN 22 H (7-17) mg/dL Creatinine 1.27 H (0.52-1.04) mg/dL Glucose 104 H (74-99) mg/dL POC Glucose (mg/dL) (75-99) mg/dL Hemoglobin A1c (4.0-6.0) % Assessment and Plan Plan: Assessment: #1. Nonoliguric acute kidney injury mostly prerenal secondary to acute anemia. Creatinine was 2.4 and admission and is down to 1.27 today. Urinalysis is quite benign. No evidence of hydronephrosis noted on renal ultrasound. #2. Acute blood loss anemia with concern for GI bleed. GI following. Scheduled for endoscopy today. #3. Metabolic acidosis secondary to acute kidney injury and IV fluids. Improved. #4. Chronic kidney disease stage III secondary to nephrosclerosis with baseline creatinine near 1.7 per records. #5. Orthostatic hypotension likely related to anemia. Resolved. #6. Diabetes mellitus. #7. Benign hypertension. Blood pressures on the higher side. Plan: Continue normal saline at 50 mL an hour - can heplock once diet initiated. Maintain oral sodium bicarbonate 650 mg twice daily. Avoid nephrotoxic agents and hypotensive episodes. Repeat electrolytes in the morning. Anticipate discharge soon. She will need to follow-up as an outpatient in the next 2 weeks. Hold Zestoretic for now. Add hydralazine 25 mg 3 times daily.
[2017-08-27 11:24] LABS: Glucose,Whole Blood 126 mg/dL (75-99)
[2017-08-27] MEDS: hydrALAZINE HCL 25 MG TAB PO SCH ×3 (13:01→23:46)
[2017-08-27] MEDS ORDERED: LIDOCAINE 1% INJ 10MG/ML (20 ML MDV) ONE (13:46)
[2017-08-27] MEDS ORDERED: PROPOFOL 10 MG/ML 20 ML VIAL IV ONE (13:46)
[2017-08-27] MEDS ORDERED: IV FLUID CONTINUATION 1,000 ML IV ONE (13:46)
--- NOTE | 2017-08-27 14:14 | P.PCN ---
Date of Procedure: 08/27/17 Procedure(s) Performed: Brief history: Patient is a [id number] white female,to the hospital with microcytic hyperchromic anemia and a hemoglobin of 7 requiring 2 separate transfusion. She is hence scheduled for an elective upper endoscopy as well as colonoscopy Procedure performed: Esophagogastroduodenoscopy with biopsy Colonoscopy Preoperative diagnosis: microcytic hypochromic anemia Anesthesia: MAC Procedure: After informed consent was obtained from the patient was brought into the endoscopy unit and IV sedation was administered by anesthesia under continuous monitoring. Initially upper endoscopy was done. The Olympus GF 160 video endoscope was inserted inserted into the mouth and esophagus intubated without any difficulty and was gradually advanced into the stomach and duodenum and carefully examined. The bulb and second part of the duodenum appeared normal. biopsies were done from the duodenum to rule out celiac disease. The scope was then withdrawn into the stomach adequately insufflated with air and upon careful examination the antrum had diffuse gastritis and biopsies were done from this area. The body, cardia and fundus appeared normal. The scope was then withdrawn into the esophagus. The GE junction was located at 40 cm to the incisors. It appeared regular with no erythema erosions or ulcerations. Rest of the esophagus appeared normal. Patient tolerated the procedure well. At this time the patient continued to remain sedation. Initial digital rectal examination was normal. Olympus CF 160 video colonoscope was then inserted into the rectum and gradually advanced to the cecum without any difficulty. Careful examination was performed as the scope was gradually being withdrawn. The prep was excellent. The cecum, ascending colon, transverse colon, descending colon, sigmoid colon and rectum appeared normal. Retroflexion was performed in the rectum and small internal hemorrhoids were noted. Patient tolerated the procedure well. Impression: 1. Upper endoscopy revealed diffuse antral gastritis but no evidence of esophagitis or peptic ulcer disease 2. Colonoscopy revealed small internal hemorrhoids, no evidence of colitis or colorectal neoplasia Recommendations: Findings of this examination were discussed with the patient as well abdon family. She was advised to follow with the biopsy results. She will start on iron supplements twice daily and follow hemoglobin and hematocrit. on a monthly basis
[2017-08-27] MEDS: SODIUM CHLORIDE 0.9% 1,000 ML IV SCH (16:32)
[2017-08-27 17:41] LABS: Glucose,Whole Blood 185 mg/dL (75-99)
[2017-08-27] MEDS: PANTOPRAZOLE 40 MG TABLET PO SCH (20:15)
[2017-08-27 20:28] LABS: Glucose,Whole Blood 182 mg/dL (75-99)
--- NOTE | 2017-08-27 22:32 | PN ---
PROGRESS NOTE DATE OF SERVICE: August 27, 2017. PRESENTING COMPLAINT: Tired. INTERVAL HISTORY: This patient with multiple problems presented with acute renal failure on chronic kidney disease, metabolic acidosis, symptomatic anemia and orthostatic BP. After getting 2 units of blood, orthostatics resolved. Creatinine is actually has come down. When I saw this patient this afternoon, patient was due to go down for EGD. Finally managed to keep preparation down. Nausea improved. REVIEW OF SYSTEMS: Done for constitutional, cardiovascular, GI, pulmonary; relevant findings as above. CURRENT MEDICATIONS: Reviewed that include allopurinol, Plavix, Glucotrol, hydralazine, Lopressor, Ranexa, sodium bicarb, IV fluids at 50 mL an hour. PHYSICAL EXAMINATION: Temperature 97.8, pulse 63, respirations 16, blood pressure 154/67, pulse ox 100% on room air. General appearance: Sitting up in a chair, comfortable, eyes pupils equal, conjunctivae normal. HEENT external appearance of nose and ears normal. Oral cavity normal. Neck JVD not raised. Mass not palpable. Respiratory effort normal. Lungs are clear. Cardiovascular 1st and second sounds normal. Minimal edema. ABDOMEN: Soft, nontender. Liver and spleen not palpable. Psychiatry alert and oriented x3. Mood and affect normal. INVESTIGATIONS: Potassium 4.1, BUN 22, creatinine 1.27. Accu-Cheks 104, 126, 185. ASSESSMENT: 1. Symptomatic microcytic anemia status post 2 units of blood. 2. Obesity; BMI 38.9. 3. Coronary artery disease, prior history of coronary stent 5 years ago. 4. Essential hypertension. 5. Hyperlipidemia. 6. Orthostatic hypotension from severe anemia, now corrected. 7. Chronic kidney disease probably diabetic nephropathy with creatinine now coming down to 1.2. 8. Acute renal failure multifactorial/prerenal improving. 9. Severe myopathy multifactorial presentation now improved. 10.Metabolic acidosis from renal failure on bicarb. 11.Nausea, probably from renal failure getting better. 12.Diffuse gastritis as per EGD. PLAN: At this point, we are going to add Protonix. I did speak to nurse on the phone. Patient did eat his supper rather well. We will keep the IV fluids on tonight. Repeat a BMP in the morning. Will finalize medications before going home tomorrow. MMODL / IJN: [id number] /
[2017-08-28 00:18] VITALS: TEMP 98.5
[2017-08-28 07:28] LABS: Glucose,Whole Blood 137 mg/dL (75-99)
[2017-08-28] MEDS: INSULIN ASPART 100 UNIT/ML 1 ML 10 ML VIAL SQ SCH ×2 (07:45→12:39)
[2017-08-28] MEDS: CLOPIDOGREL 75 MG TAB PO SCH (07:46)
[2017-08-28] MEDS: RANOLAZINE 500 MG TAB.ER.12H PO SCH (07:46)
[2017-08-28] MEDS: PANTOPRAZOLE 40 MG TABLET PO SCH (07:46)
[2017-08-28] MEDS: ALLOPURINOL 100 MG TAB PO SCH (07:46)
[2017-08-28] MEDS: METOPROLOL TARTRATE 12.5 MG TAB PO SCH (07:47)
[2017-08-28] MEDS: SODIUM CHLORIDE 0.9% 1,000 ML IV SCH (07:47)
[2017-08-28] MEDS: hydrALAZINE HCL 25 MG TAB PO SCH (07:47)
[2017-08-28] MEDS: SODIUM BICARBONATE TAB 650 MG TAB PO SCH (07:47)
[2017-08-28 08:18] LABS: Calcium 8.9 mg/dL (8.4-10.2); Potassium 4.6 mmol/L (3.5-5.1)
[2017-08-28 08:40] VITALS: PULSE 57; RESP 18
--- NOTE | 2017-08-28 10:21 | P.PN ---
Subjective Patient is seen in follow-up for acute kidney injury. Creatinine was 2.4 on admission and is stable at 1.29 today. Patient presented with generalized weakness and dizziness. She was noted to be orthostatic. She is currently maintained on normal saline. She was also anemic with a hemoglobin of 6.8 and received blood transfusion this admission. Hemoglobin improved. Denies any melena or hematochezia. No signs of active bleeding. Oral intake is good. She underwent endoscopy yesterday which revealed gastritis and small internal hemorrhoids. Vital signs are stable. General: The patient appeared well nourished and normally developed. HEENT: Head exam is unremarkable. Neck is without jugular venous distension. LUNGS: Lungs are clear to auscultation and percussion. Breath sounds decreased. HEART: Rate and Rhythm are regular. First and second heart sounds normal. No murmurs, rubs or gallops. ABDOMEN: Abdominal exam reveals normal bowel sounds. Non-tender and non- distended. No evidence of peritonitis. EXTREMITITES: No clubbing, cyanosis, or edema. Objective - Vital Signs Vital signs: Vital Signs Temp 98.5 F 08/28/17 07:00 Pulse 57 L 08/28/17 07:00 Resp 18 08/28/17 07:00 BP 111/41 08/28/17 07:00 Pulse Ox 95 08/28/17 07:00 Intake & Output 08/27/17 08/28/17 08/28/17 18:59 06:59 18:59 Intake Total 800 350 Balance 800 350 Weight 81.68 kg Intake: IV 400 Intake, IV Titration 400 350 Amount Sodium Chloride 0.9% 1, 400 350 000 ml @ 50 mls/hr IV . Q20H [facility] Rx#:[id number] Other: Voiding Method Toilet Toilet Toilet # Voids 1 # Bowel Movements 1 - Labs CBC & Chem 7: 08/26/17 07:23 08/28/17 07:45 Labs: Abnormal Lab Results - Last 24 Hours (Table) 08/27/17 08/27/17 08/27/17 Range/Units 11:19 17:21 20:11 Chloride (98-107) mmol/L Creatinine (0.52-1.04) mg/dL Glucose (74-99) mg/dL POC Glucose (mg/dL) 126 H 185 H 182 H (75-99) mg/dL 08/28/17 08/28/17 Range/Units 07:25 07:45 Chloride 108 H (98-107) mmol/L Creatinine 1.29 H (0.52-1.04) mg/dL Glucose 126 H (74-99) mg/dL POC Glucose (mg/dL) 137 H (75-99) mg/dL Assessment and Plan Plan: Assessment: #1. Nonoliguric acute kidney injury mostly prerenal secondary to acute anemia. Creatinine was 2.4 and admission and is stable at 1.29 today. Urinalysis is quite benign. No evidence of hydronephrosis noted on renal ultrasound. #2. Acute blood loss anemia with concern for GI bleed. GI following. Status post endoscopy in August 27 which revealed gastritis and internal hemorrhoids. #3. Metabolic acidosis secondary to acute kidney injury and IV fluids. Improved. #4. Chronic kidney disease stage III secondary to nephrosclerosis with baseline creatinine near 1.7 per records. #5. Orthostatic hypotension likely related to anemia. Resolved. #6. Diabetes mellitus. #7. Benign hypertension. Blood pressures somewhat labile. Plan: Hep-Lock IV fluids. Maintain oral sodium bicarbonate 650 mg twice daily. Avoid nephrotoxic agents and hypotensive episodes. Repeat electrolytes in the morning. Anticipate discharge soon. She will need to follow-up as an outpatient in the next 2 weeks. Hold Zestoretic for now. Maintain hydralazine 25 mg 3 times daily.
--- NOTE | 2017-08-28 10:48 | P.PN ---
Subjective Progress Note Date: 08/28/17 Principal diagnosis: Status post EGD colonoscopy for evaluation of microcytic anemia with findings of diffuse antral gastritis and internal hemorrhoids. Feels well this morning. Anticipates discharge today. Diet advanced. Afebrile. Denies abdominal pain. Objective - Vital Signs Vital signs: Vital Signs Temp 98.5 F 08/28/17 07:00 Pulse 57 L 08/28/17 07:00 Resp 18 08/28/17 07:00 BP 111/41 08/28/17 07:00 Pulse Ox 95 08/28/17 07:00 Intake & Output 08/27/17 08/28/17 08/28/17 18:59 06:59 18:59 Intake Total 800 350 Balance 800 350 Weight 81.68 kg Intake: IV 400 Intake, IV Titration 400 350 Amount Sodium Chloride 0.9% 1, 400 350 000 ml @ 50 mls/hr IV . Q20H [facility] Rx#:[id number] Other: Voiding Method Toilet Toilet Toilet # Voids 1 # Bowel Movements 1 - Exam General appearance: The patient is alert, oriented, in no acute distress. HET: Head is normocephalic and atraumatic. Pupils are equal and reactive. Oropharynx is clear without lesions. Neck: Supple without lymphadenopathy. Trachea midline. Heart: S1 S2. Regular rate and rhythm. Lungs: No crackles or wheezes are heard. Abdomen: Soft, nontender, nondistended with bowel sounds. No peritoneal signs. No palpable organomegaly or masses. Extremities: Normal skin color and turgor. No cyanosis, rash, ulceration, clubbing, or edema. Radial and pedal pulses are 2/4 bilaterally. Neurological: No focal deficits. Strength and sensation are grossly intact. - Labs CBC & Chem 7: 08/26/17 07:23 08/28/17 07:45 Labs: Abnormal Lab Results - Last 24 Hours (Table) 08/27/17 08/27/17 08/27/17 Range/Units 11:19 17:21 20:11 Chloride (98-107) mmol/L Creatinine (0.52-1.04) mg/dL Glucose (74-99) mg/dL POC Glucose (mg/dL) 126 H 185 H 182 H (75-99) mg/dL 08/28/17 08/28/17 Range/Units 07:25 07:45 Chloride 108 H (98-107) mmol/L Creatinine 1.29 H (0.52-1.04) mg/dL Glucose 126 H (74-99) mg/dL POC Glucose (mg/dL) 137 H (75-99) mg/dL Assessment and Plan (1) Anemia Narrative/Plan: Severe microcytic hypochromic anemia most likely related to iron deficiency status post EGD colonoscopy with no evidence of bleeding or bleeding sources. Current Visit: Yes Status: Acute Code(s): D64.9 - ANEMIA, UNSPECIFIED SNOMED Code(s): 385156112 Plan: Recommendations: 1. Advised to follow-up with biopsy results. Iron supplementation twice daily with CBC monitoring on a monthly basis. Discharge per medicine. Assessment and plan of care discussed with Dr. Aranda
[2017-08-28] MEDS ORDERED: FERROUS SULFATE 325 MG TAB PO SCH (11:00)
[2017-08-28 11:20] LABS: Glucose,Whole Blood 171 mg/dL (75-99)
[2017-08-28 11:58] VITALS: BP 150/66
--- NOTE | 2017-08-30 11:51 | DS ---
DISCHARGE SUMMARY DATE OF ADMISSION: 08/24/2017 DATE OF DISCHARGE: 08/28/2017 FINAL DIAGNOSES: 1. Acute renal failure, multifactorial, prerenal including effective medications, decreased oral intake, dehydration. 2. Symptomatic microcytic anemia from iron deficiency anemia requiring 2 units of blood. 3. Orthostatic hypotension on presentation from severe anemia, corrected. 4. Obesity; BMI 38.9. 5. Coronary artery disease, prior history of coronary stent 5 years ago. 6. Essential hypertension. 7. Hyperlipidemia. 8. Chronic kidney disease, probably diabetic nephropathy, creatinine down to 1.2. 9. Severe myopathy, multifactorial in presentation, improved. 10.Metabolic acidosis from renal failure. 11.Nausea, probably from renal failure, improved. 12.Diffuse gastritis. PROCEDURE: EGD and a colonoscopy. CONSULTATIONS: 1. Dr. Imelda Aranda from GI. 2. Dr. Correa from Nephrology. This is a very pleasant 72-year-old patient follows with Dr. Batista's, presented extremely weak, tired, run down, found to be significantly orthostatic when she came in when she came in. Patient's hemoglobin was down to 6.8. Patient did receive 2 units of blood. Hemoglobin did climb up to 8.4 by the time of discharge. Patient was iron deficient with a ferritin only being 9.9. Patient's troponins were negative. Patient's 2D echocardiogram showed an EF of 55% to 60%. EGD did show gastritis. Responded well to PPIs. Colonoscopy was unremarkable except for small internal hemorrhoids. Patient's creatinine was up to 2.4, did drop down to 1.27 by the time of discharge. Patient also was acidotic for which bicarb was added. By the time of discharge, patient was doing much better, up and about, note more dizzy, tolerating a diet. Patient diabetic pills also cut back and as patient diet goes up, this can be further adjusted. Patient's TSH came back as normal. Patient's uric acid came back at 5.1. Care was discussed in detail with patient's and other family members different times the day of discharge. Discharge planning more than 35 minutes. On exam, lungs are clear. CARDIOVASCULAR: First and second sounds are normal. PSYCH: AO x3. DISCHARGE MEDICATIONS: 1. Allopurinol 100 mg a day. 2. Plavix 75 mg a day. 3. Ranexa 1000 mg p.o. b.i.d. 4. Aspirin 81 mg p.o. daily. 5. Iron 325 p.o. b.i.d. 6. Lopressor 12.5 p.o. b.i.d. 7. Prilosec 20 mg b.i.d. 8. Sodium bicarb 650 mg b.i.d. 9. DiaBeta 5 mg a day. 10.Hydralazine 25 mg p.o. t.i.d. Follow with Dr. Imelda Aranda on 10/24/2017, Dr. Batista on 08/30/2017, Dr. Correa in 3 weeks. CBC, BMP in a week. MMODL / IJN: [id number] /
== END 2017-08-28 14:50 | disposition home or self-care (01) | DRG 812 ==
LOC: EC 13:56 → 5MS5E 16:56
PROVIDERS: ADMIT Hospitalist; ATTEND Hospitalist
PROC: 30233N1 Transfusion of Nonautologous Red Blood Cells into Peripheral Vein, Percutaneous Approach (ICD-10-PCS; principal; 2017-08-24)
PROC: 0DB78ZX Excision of Stomach, Pylorus, Via Natural or Artificial Opening Endoscopic, Diagnostic (ICD-10-PCS; 2017-08-27)
PROC: 0DJD8ZZ Inspection of Lower Intestinal Tract, Via Natural or Artificial Opening Endoscopic (ICD-10-PCS; 2017-08-27)
PROC: 0DB98ZX Excision of Duodenum, Via Natural or Artificial Opening Endoscopic, Diagnostic (ICD-10-PCS; 2017-08-27 09:40)
DX: D50.9 Iron deficiency anemia, unspecified (principal); N17.9 Acute kidney failure, unspecified; E87.2 Acidosis; E11.21 Type 2 diabetes mellitus with diabetic nephropathy; E11.22 Type 2 diabetes mellitus with diabetic chronic kidney disease; N18.3 Chronic kidney disease, stage 3 (moderate); I95.1 Orthostatic hypotension; I12.9 Hypertensive chronic kidney disease with stage 1 through stage 4 chronic kidney disease, or unspecified chronic kidney disease; T46.4X5A Adverse effect of angiotensin-converting-enzyme inhibitors, initial encounter; T50.2X5A Adverse effect of carbonic-anhydrase inhibitors, benzothiadiazides and other diuretics, initial encounter; K29.60 Other gastritis without bleeding; K64.8 Other hemorrhoids; E78.5 Hyperlipidemia, unspecified; I25.10 Atherosclerotic heart disease of native coronary artery without angina pectoris; E66.9 Obesity, unspecified; Z68.30 Body mass index [BMI] 30.0-30.9, adult; Z79.82 Long term (current) use of aspirin; Z79.84 Long term (current) use of oral hypoglycemic drugs; Z79.02 Long term (current) use of antithrombotics/antiplatelets; Z79.899 Other long term (current) drug therapy; Z95.5 Presence of coronary angioplasty implant and graft; Z90.49 Acquired absence of other specified parts of digestive tract
CPT/HCPCS: 36415; 43239; 45378; 71046; 76705; 76770; 80048; 80053; 81001; 82550; 82553; 82728; 83036; 83540; 83550; 83735; 84100; 84443; 84484; 84550; 85025; 85610; 85730; 86850; 86900; 86901; 86920; 88305; 93005; 93306; 96361; 96374; 99285